=== PATIENT | male | born 1955 ===

== ENCOUNTER 2019-10-11 14:38 | Inpatient (IN) | payer OTHER ==
[~2019-10-11] VITALS: Ht 180.3 cm; Wt 106.1 kg
--- NOTE | 2019-10-11 15:15 | NUR ---
PT WITH COUGH X 3 DAYS, PRODUCTIVE. PT REQUIRING SUPP O2 IN TRIAGE, PT SATING 99 ON 3L AT THIS TIME. PT WITH LOW GRADE FEVER 99.4 AT HOME PER FAMILY. PT WITH RECENT TRAVEL TO [place], PER FAMILY NO TRAVEL TO [place] PT TO CARD MONITOR, PULSE OX, BP.
--- NOTE | 2019-10-11 15:50 | NUR ---
PIV INITIATED, PT TO GO TO CT
[2019-10-11 15:59] LABS: BASOPHILS # (AUTO) 0.03 x10^3/uL (0-0.1); BASOPHILS % (AUTO) 0 % (0-1); EOSINOPHILS % (AUTO) 0 % (1-7); LYMPHOCYTES % (AUTO) 5 % (22-44); MD NO; MEAN CORPUSCULAR HEMOGLOBIN 32.2 pg (27.5-34.5); MEAN CORPUSCULAR VOLUME 94.6 fL (81-97); MONOCYTES # (AUTO) 0.58 x10^3/uL (0.2-0.8); MONOCYTES % (AUTO) 7 % (2-9); NEUTROPHILS # (AUTO) 7.67 x10^3/uL (1.8-6.8); NEUTROPHILS % (AUTO) 88 % (42-75); PLATELET COUNT 191 x10^3/uL (130-400); RED CELL DISTRIBUTION WIDTH 14.5 % (9.4-14.8)
[2019-10-11 16:03] LABS: ALANINE AMINOTRANSFERASE 54 U/L (12-78); ALBUMIN 3.8 g/dL (3.4-5.0); ANION GAP 6 mmol/L (5-15); CALCIUM 8.8 mg/dL (8.5-10.1); CHLORIDE 98 mmol/L (98-107); CREATININE 0.97 mg/dL (0.7-1.3)
[2019-10-11 16:04] LABS: ALKALINE PHOSPHATASE 52 U/L (45-117); BILIRUBIN,TOTAL 0.9 mg/dL (0.2-1.0); TOTAL PROTEIN 7.8 g/dL (6.4-8.2)
[2019-10-11 16:09] LABS: RAPID INFLUENZA A POSITIVE (Negative); RAPID INFLUENZA B Negative (Negative)
--- NOTE | 2019-10-11 16:28 | NUR ---
PT CONTINUES TO REST ON [facility]Y. VSS
[2019-10-11] MEDS ORDERED: OSELTAMIVIR 75 MG CAPSULE PO ONE (16:30)
[2019-10-11] MEDS ORDERED: OSELTAMIVIR 75 MG CAPSULE ONE (17:03)
--- NOTE | 2019-10-11 17:35 | NUR ---
ATTEMPTED TO WEAN PT OFF O2, PT SATING 90 ON 1L, PT THEN AMBULATED TO BR WITHOUT O2 RA ON RETURN TO RM WAS 75%, REPLACED O2 PT TOOK A WHILE TO REGAIN SAT TO 93 ON 3LNC. JANNET UPDATED
--- NOTE | 2019-10-11 18:15 | NUR ---
PT TO CT AT THIS TIME3
[2019-10-11] MEDS ORDERED: OMNIPAQUE 350 MG/ML, 100ML BOTTLE ONE (18:36)
--- NOTE | 2019-10-11 18:47 | NUR ---
REPORT GIVEN TO RECLESLY MELTON
[2019-10-11 19:40] VITALS: BP 148/91
[2019-10-11] MEDS ORDERED: LEVO75TA PO (20:38)
[2019-10-11] MEDS ORDERED: METF-649 PO (20:38)
[2019-10-11] MEDS ORDERED: OMEP-231 PO (20:38)
[2019-10-11] MEDS ORDERED: AMIT25TA PO (20:38)
[2019-10-11] MEDS ORDERED: NEBI5TAB2 PO (20:38)
[2019-10-11] MEDS ORDERED: PREG75CA68 PO (20:38)
[2019-10-11] MEDS ORDERED: EMPA25TA PO (20:38)
[2019-10-11] MEDS ORDERED: TELM1TAB PO (20:38)
[2019-10-11] MEDS ORDERED: OMEPRAZOLE 20 MG CAPSULE.DR PO PRN (21:00)
[2019-10-11] MEDS ORDERED: PREGABALIN 75 MG CAPSULE PO PRN (21:00)
[2019-10-12] MEDS: ENOXAPARIN 40 MG/0.4 ML SQ SCH (01:34)
[2019-10-12 03:52] VITALS: BP 164/104
[2019-10-12] MEDS ORDERED: hydrALAzine 20 MG/ML, 1ML IV PRN (04:30)
[2019-10-12] MEDS: LEVOTHYROXINE 75 MCG TABLET PO SCH (06:10)
[2019-10-12 08:24] VITALS: BP 166/89
[2019-10-12 08:25] VITALS: BP 130/70
[2019-10-12] MEDS ORDERED: metFORMIN 500 MG TABLET PO SCH (09:00)
[2019-10-12] MEDS ORDERED: LOSARTAN 50MG TABLET PO SCH (09:00)
[2019-10-12] MEDS ORDERED: AMLODIPINE 5 MG TABLET PO SCH (09:00)
[2019-10-12] MEDS: OSELTAMIVIR 75 MG CAPSULE PO SCH ×2 (09:03→20:45)
[2019-10-12] MEDS: AMLODIPINE 10 MG TAB PO SCH (09:03)
[2019-10-12] MEDS: LOSARTAN 100 MG TAB PO SCH (09:03)
[2019-10-12] MEDS: AMITRIPTYLINE 25 MG TABLET PO SCH (09:03)
[2019-10-12] MEDS: NEBIVOLOL HCL 5 MG TABLET PO SCH (09:04)
[2019-10-12] MEDS: GUAIFENESIN 200 MG TABLET PO SCH ×3 (13:24→20:45)
[2019-10-12 13:32] VITALS: BP 150/64
[2019-10-12] MEDS: metFORMIN 500 MG TABLET PO SCH (16:55)
[2019-10-12 17:25] VITALS: BP 126/82
[2019-10-12 19:47] VITALS: BP 129/77
[2019-10-13 00:05] VITALS: BP 120/76
[2019-10-13] MEDS: ENOXAPARIN 40 MG/0.4 ML SQ SCH (01:42)
[2019-10-13] MEDS: LEVOTHYROXINE 75 MCG TABLET PO SCH (04:49)
[2019-10-13] MEDS: GUAIFENESIN 200 MG TABLET PO SCH ×4 (04:49→20:42)
[2019-10-13 06:51] VITALS: BP 134/77
[2019-10-13 07:25] LABS: ANION GAP 4 mmol/L (5-15); CALCIUM 8.3 mg/dL (8.5-10.1); CHLORIDE 99 mmol/L (98-107); CREATININE 0.83 mg/dL (0.7-1.3)
[2019-10-13 07:30] LABS: MEAN CORPUSCULAR HEMOGLOBIN 32.7 pg (27.5-34.5); MEAN CORPUSCULAR HGB CONC 34.2 g/dL (33.2-36.2); MEAN CORPUSCULAR VOLUME 95.7 fL (81-97); MEAN PLATELET VOLUME 6.8 fL (7.4-10.4); PLATELET COUNT 168 x10^3/uL (130-400); RED BLOOD COUNT 4.81 x10^6/uL (4.38-5.82); RED CELL DISTRIBUTION WIDTH 14.4 % (9.4-14.8)
[2019-10-13] MEDS: NEBIVOLOL HCL 5 MG TABLET PO SCH (07:36)
[2019-10-13] MEDS: LOSARTAN 100 MG TAB PO SCH (07:36)
[2019-10-13] MEDS: AMLODIPINE 10 MG TAB PO SCH (07:36)
[2019-10-13] MEDS: metFORMIN 500 MG TABLET PO SCH ×2 (07:36→17:24)
[2019-10-13] MEDS: OSELTAMIVIR 75 MG CAPSULE PO SCH ×2 (07:36→20:42)
[2019-10-13] MEDS: AMITRIPTYLINE 25 MG TABLET PO SCH (07:36)
[2019-10-13 07:59] LABS: BASOPHILS # (AUTO) 0.01 x10^3/uL (0-0.1); BASOPHILS % (AUTO) 0 % (0-1); EOSINOPHILS # (AUTO) 0.03 x10^3/uL (0-0.4); EOSINOPHILS % (AUTO) 1 % (1-7); LYMPHOCYTES # (AUTO) 0.63 x10^3/uL (1-3.4); LYMPHOCYTES % (AUTO) 10 % (22-44); MD SCAN; MONOCYTES # (AUTO) 0.65 x10^3/uL (0.2-0.8); MONOCYTES % (AUTO) 10 % (2-9); NEUTROPHILS # (AUTO) 5.33 x10^3/uL (1.8-6.8); NEUTROPHILS % (AUTO) 80 % (42-75)
[2019-10-13] MEDS ORDERED: DOCUSATE 100 MG CAPSULE ONE (09:36)
[2019-10-13] MEDS ORDERED: DOCUSATE 100 MG CAPSULE PO PRN (10:00)
[2019-10-13] MEDS: ALBUTEROL/IPRATROPIUM 2.5MG/0.5MG, 3 ML HHN SCH ×3 (11:35→19:40)
[2019-10-13 13:27] VITALS: BP 134/77
[2019-10-13 20:16] VITALS: BP 130/75
[2019-10-14] MEDS: ENOXAPARIN 40 MG/0.4 ML SQ SCH ×2 (01:24→23:05)
[2019-10-14 02:00] VITALS: BP 125/80
[2019-10-14] MEDS: ALBUTEROL/IPRATROPIUM 2.5MG/0.5MG, 3 ML HHN SCH ×4 (02:17→20:01)
[2019-10-14] MEDS: LEVOTHYROXINE 75 MCG TABLET PO SCH (05:47)
[2019-10-14] MEDS: GUAIFENESIN 200 MG TABLET PO SCH ×4 (05:47→23:04)
[2019-10-14 06:59] VITALS: BP 121/78
[2019-10-14] MEDS: NEBIVOLOL HCL 5 MG TABLET PO SCH (08:18)
[2019-10-14] MEDS: metFORMIN 500 MG TABLET PO SCH ×2 (08:18→17:25)
[2019-10-14] MEDS: AMITRIPTYLINE 25 MG TABLET PO SCH (08:18)
[2019-10-14] MEDS: AMLODIPINE 10 MG TAB PO SCH (08:18)
[2019-10-14] MEDS: LOSARTAN 100 MG TAB PO SCH (08:18)
[2019-10-14] MEDS: OSELTAMIVIR 75 MG CAPSULE PO SCH (08:18)
[2019-10-14] MEDS ORDERED: methylPREDNISolone SOD SUCC 40 MG/ML IV SCH (09:00)
[2019-10-14 11:59] VITALS: BP 134/84
[2019-10-14] MEDS ORDERED: INSULIN LISPRO 100 UNITS/ML, PEN SQ-INSULIN SCH (12:00)
[2019-10-14 12:12] VITALS: BP 130/78
[2019-10-14] MEDS ORDERED: ALBUTEROL/IPRATROPIUM 2.5MG/0.5MG, 3 ML NPPB PRN (12:30)
[2019-10-14 14:03] LABS: MEAN CORPUSCULAR HEMOGLOBIN 32.6 pg (27.5-34.5); MEAN CORPUSCULAR HGB CONC 34.1 g/dL (33.2-36.2); MEAN CORPUSCULAR VOLUME 95.7 fL (81-97); MEAN PLATELET VOLUME 6.8 fL (7.4-10.4); PLATELET COUNT 181 x10^3/uL (130-400); RED BLOOD COUNT 4.61 x10^6/uL (4.38-5.82)
[2019-10-14 14:12] LABS: ANION GAP 8 mmol/L (5-15); CALCIUM 8.6 mg/dL (8.5-10.1); CHLORIDE 97 mmol/L (98-107); CREATININE 0.96 mg/dL (0.7-1.3)
[2019-10-14] MEDS ORDERED: SODIUM CHLORIDE 0.9% 1,000 ML IV SCH (15:00)
[2019-10-14 15:05] LABS: BASOPHILS % (AUTO) 0 % (0-1); EOSINOPHILS % (AUTO) 0 % (1-7); LYMPHOCYTES # (AUTO) 0.16 x10^3/uL (1-3.4); LYMPHOCYTES % (AUTO) 4 % (22-44); MD SCAN; MONOCYTES # (AUTO) 0.12 x10^3/uL (0.2-0.8); MONOCYTES % (AUTO) 3 % (2-9); NEUTROPHILS # (AUTO) 3.85 x10^3/uL (1.8-6.8); NEUTROPHILS % (AUTO) 93 % (42-75)
[2019-10-14 15:49] LABS: CHLORIDE,URINE RANDOM 22 mmol/L; POTASSIUM,URINE RANDOM 27 mmol/L; SODIUM,URINE RANDOM 25 mmol/L
[2019-10-14 16:43] VITALS: BP 124/79
[2019-10-14 17:39] LABS: OSMOLALITY,URINE 636 mOsm/kg (500-850)
[2019-10-14] MEDS ORDERED: BISACODYL 10 MG SUPP PR PRN (18:00)
[2019-10-14] MEDS: SODIUM CHLORIDE 1 GM TABLET PO SCH ×2 (18:00→23:05)
[2019-10-14] MEDS: DOCUSATE 100 MG CAPSULE PO SCH (18:00)
[2019-10-14] MEDS: INSULIN LISPRO 100 UNITS/ML, PEN SQ-INSULIN SCH ×2 (18:01→23:07)
[2019-10-14 18:25] VITALS: BP 119/77
[2019-10-14] MEDS ORDERED: LINEZOLID PMX 600MG/300ML 300 ML IV SCH (20:00)
[2019-10-14] MEDS ORDERED: INSULIN GLARGINE 100 UNITS/ML, PEN SQ-INSULIN SCH (21:00)
[2019-10-14] MEDS ORDERED: OSELTAMIVIR 75 MG CAPSULE PO SCH (21:00)
[2019-10-14] MEDS: SENNA/DOCUSATE TABLET PO SCH (23:04)
[2019-10-14] MEDS: PIPERACILLIN/TAZO/PMX 3.375GM 50 ML IV SCH (23:05)
[2019-10-14] MEDS: methylPREDNISolone SOD SUCC 40 MG/ML IV SCH (23:05)
[2019-10-15 01:07] VITALS: BP 147/83
[2019-10-15] MEDS: ALBUTEROL/IPRATROPIUM 2.5MG/0.5MG, 3 ML HHN SCH ×5 (02:08→20:14)
[2019-10-15] MEDS: GUAIFENESIN 200 MG TABLET PO SCH ×4 (06:18→22:13)
[2019-10-15] MEDS: PIPERACILLIN/TAZO/PMX 3.375GM 50 ML IV SCH ×2 (06:19→11:47)
[2019-10-15] MEDS: methylPREDNISolone SOD SUCC 40 MG/ML IV SCH ×4 (06:19→22:13)
[2019-10-15] MEDS: LEVOTHYROXINE 75 MCG TABLET PO SCH (06:19)
[2019-10-15] MEDS: OSELTAMIVIR 75 MG CAPSULE PO SCH ×2 (08:37→22:13)
[2019-10-15] MEDS: SODIUM CHLORIDE 1 GM TABLET PO SCH (08:38)
[2019-10-15] MEDS: AMITRIPTYLINE 25 MG TABLET PO SCH (08:38)
[2019-10-15] MEDS: LOSARTAN 100 MG TAB PO SCH (08:38)
[2019-10-15] MEDS: INSULIN LISPRO 100 UNITS/ML, PEN SQ-INSULIN SCH ×4 (08:38→22:15)
[2019-10-15] MEDS: NEBIVOLOL HCL 5 MG TABLET PO SCH (08:38)
[2019-10-15] MEDS: POLYETHYLENE GLYCOL 17 GM PACKET PO SCH (08:38)
[2019-10-15] MEDS: AMLODIPINE 10 MG TAB PO SCH (08:38)
[2019-10-15] MEDS ORDERED: DOCUSATE 50 MG/5 ML, 10ML UDC NG SCH (09:00)
[2019-10-15 09:34] VITALS: BP 163/80
[2019-10-15] MEDS ORDERED: LORazepam 0.5MG TABLET PO PRN (12:30)
[2019-10-15] MEDS ORDERED: LORazepam 2 MG/ML, 1ML IV PRN ×2 (12:30)
[2019-10-15] MEDS ORDERED: LORazepam 1MG TABLET PO PRN (12:30)
[2019-10-15] MEDS ORDERED: CEFAZOLIN 1,000 MG IM SCH (12:50)
[2019-10-15 13:44] VITALS: BP 125/75
[2019-10-15] MEDS: CEFAZOLIN PMX 1GM/50ML 50 ML IV SCH ×2 (14:37→22:22)
[2019-10-15 19:38] VITALS: BP 131/80
[2019-10-15] MEDS ORDERED: INSULIN GLARGINE 100 UNITS/ML, PEN SQ-INSULIN SCH (21:00)
[2019-10-15] MEDS: THIAMINE 100MG TABLET PO SCH (22:13)
[2019-10-15] MEDS: SENNA/DOCUSATE TABLET PO SCH (22:13)
[2019-10-15] MEDS ORDERED: ENOXAPARIN 40 MG/0.4 ML SQ SCH (23:00)
[2019-10-16] MEDS: ALBUTEROL/IPRATROPIUM 2.5MG/0.5MG, 3 ML HHN SCH ×2 (03:07→08:19)
[2019-10-16 03:17] VITALS: BP 136/82
[2019-10-16 06:25] LABS: ALBUMIN 3.2 g/dL (3.4-5.0); ANION GAP 5 mmol/L (5-15); BILIRUBIN, DIRECT 0.2 mg/dL (0.1-0.2); CALCIUM 8.7 mg/dL (8.5-10.1); CHLORIDE 98 mmol/L (98-107)
[2019-10-16 06:26] LABS: MEAN CORPUSCULAR HEMOGLOBIN 31.8 pg (27.5-34.5); MEAN CORPUSCULAR HGB CONC 33.1 g/dL (33.2-36.2); MEAN CORPUSCULAR VOLUME 96.1 fL (81-97); PLATELET COUNT 222 x10^3/uL (130-400); RED BLOOD COUNT 4.62 x10^6/uL (4.38-5.82); RED CELL DISTRIBUTION WIDTH 13.8 % (9.4-14.8)
[2019-10-16 06:30] LABS: ALANINE AMINOTRANSFERASE 77 U/L (12-78); ALKALINE PHOSPHATASE 54 U/L (45-117); BILIRUBIN,INDIRECT 0.5 mg/dL (0.0-2.0); BILIRUBIN,TOTAL 0.7 mg/dL (0.2-1.0); CREATININE 0.85 mg/dL (0.7-1.3); TOTAL PROTEIN 7.1 g/dL (6.4-8.2)
[2019-10-16 06:32] VITALS: BP 137/87
[2019-10-16] MEDS: LEVOTHYROXINE 75 MCG TABLET PO SCH (06:36)
[2019-10-16] MEDS: GUAIFENESIN 200 MG TABLET PO SCH ×2 (06:36→12:19)
[2019-10-16] MEDS: methylPREDNISolone SOD SUCC 40 MG/ML IV SCH ×2 (06:37→11:37)
[2019-10-16] MEDS: CEFAZOLIN PMX 1GM/50ML 50 ML IV SCH (06:37)
[2019-10-16 06:53] LABS: BASOPHILS % (AUTO) 0 % (0-1); EOSINOPHILS # (AUTO) 0.01 x10^3/uL (0-0.4); EOSINOPHILS % (AUTO) 0 % (1-7); LYMPHOCYTES # (AUTO) 0.68 x10^3/uL (1-3.4); LYMPHOCYTES % (AUTO) 7 % (22-44); MD SCAN; MONOCYTES # (AUTO) 0.62 x10^3/uL (0.2-0.8); MONOCYTES % (AUTO) 6 % (2-9); NEUTROPHILS # (AUTO) 8.53 x10^3/uL (1.8-6.8); NEUTROPHILS % (AUTO) 87 % (42-75)
[2019-10-16] MEDS: OSELTAMIVIR 75 MG CAPSULE PO SCH (07:55)
[2019-10-16] MEDS: AMITRIPTYLINE 25 MG TABLET PO SCH (07:55)
[2019-10-16] MEDS: LOSARTAN 100 MG TAB PO SCH (07:56)
[2019-10-16] MEDS: INSULIN LISPRO 100 UNITS/ML, PEN SQ-INSULIN SCH ×2 (07:56→12:19)
[2019-10-16] MEDS: THIAMINE 100MG TABLET PO SCH (07:56)
[2019-10-16] MEDS: POLYETHYLENE GLYCOL 17 GM PACKET PO SCH (07:56)
[2019-10-16] MEDS: DOCUSATE 100 MG CAPSULE PO SCH (07:56)
[2019-10-16] MEDS: AMLODIPINE 10 MG TAB PO SCH (07:56)
[2019-10-16] MEDS: NEBIVOLOL HCL 5 MG TABLET PO SCH (07:56)
[2019-10-16 09:35] LABS: ANION GAP 8 mmol/L (5-15); CALCIUM 8.9 mg/dL (8.5-10.1); CHLORIDE 95 mmol/L (98-107); CREATININE 0.91 mg/dL (0.7-1.3)
[2019-10-16] MEDS ORDERED: GUAI200T37 PO (10:44)
[2019-10-16] MEDS ORDERED: PRED20TA PO (10:44)
[2019-10-16] MEDS ORDERED: OSEL75CA14 PO (10:44)
[2019-10-16] MEDS ORDERED: AMOX1TAB64 PO (10:44)
== END 2019-10-16 13:40 | disposition home or self-care (01) | DRG 189 ==
LOC: ED 19:28 → EDIP 19:32 → 3N 19:50 → 4EST 10-14 16:15 → 4WST 10-14 19:57 → 4EST 10-14 22:49
PROVIDERS: ADMIT Internal Medicine; ATTEND Hospitalist
DX: J96.01 Acute respiratory failure with hypoxia (principal); J10.08 Influenza due to other identified influenza virus with other specified pneumonia; J12.9 Viral pneumonia, unspecified; E87.1 Hypo-osmolality and hyponatremia; E03.9 Hypothyroidism, unspecified; E11.9 Type 2 diabetes mellitus without complications; I07.1 Rheumatic tricuspid insufficiency; I10 Essential (primary) hypertension; I27.20 Pulmonary hypertension, unspecified; K21.9 Gastro-esophageal reflux disease without esophagitis; G89.29 Other chronic pain; M79.662 Pain in left lower leg; J96.02 Acute respiratory failure with hypercapnia; Z79.84 Long term (current) use of oral hypoglycemic drugs; Z79.899 Other long term (current) drug therapy; Z95.1 Presence of aortocoronary bypass graft
CPT/HCPCS: 36415; 36600; 71045; 71275; 80048; 80053; 80076; 82436; 82803; 82962; 83036; 83605; 83880; 83930; 83935; 84133; 84145; 84300; 84443; 85025; 85730; 86756; 87040; 87070; 87205; 87254; 87400; 87486; 87581; 87633; 87798; 93005; 93306; 94640; 99285; G0378; J0690; J1650; J2020; J2543; Q9967; J0360; J1815; J2920; J7030